=== PATIENT | female | born 1935 | race Caucasian/White ===

== ENCOUNTER 2018-08-27 12:50 | Inpatient (IN) | payer OTHER ==
[~2018-08-27] VITALS: Ht 152.4 cm; Wt 76.7 kg
[2018-08-27 12:55] VITALS: Ht 152.4 cm; Wt 76.7 kg
[2018-08-27 14:05] LABS: BASOPHIL % 0.1 % (0-2); PLATELET COUNT 257 x10^3mcL (130-400)
[2018-08-27 14:11] LABS: CALCIUM 8.9 mg/dL (8.5-10.1); CARBON DIOXIDE 29.7 mmol/L (21-32); CHLORIDE SERUM 99 mmol/L (98-107); CREATININE SERUM 1.4 mg/dL (0.6-1.0); GLUCOSE SERUM 97 mg/dL (74-106); SODIUM SERUM 135 mmol/L (136-145)
[2018-08-27 14:16] LABS: ALKALINE PHOSPHATASE 316 U/L (46-116); ALT/SGPT 25 U/L (14-59); AST/SGOT 72 U/L (15-37); BILIRUBIN TOTAL 0.95 mg/dL (0.20-1.00); TOTAL PROTEIN, SERUM 6.6 g/dL (6.4-8.2)
[2018-08-27 14:23] LABS: ALBUMIN 2.5 g/dL (3.4-5.0)
[2018-08-27] MEDS ORDERED: GOOD SENSE OMEP20 MG PO (14:51)
[2018-08-27] MEDS ORDERED: CILOSTAZOL100 M1 PO (14:51)
[2018-08-27] MEDS ORDERED: PRO30 PO (14:51)
[2018-08-27] MEDS ORDERED: TRAMADOL HCL50 MG PO (14:52)
[2018-08-27] MEDS ORDERED: CRESTOR10 M1 PO (14:53)
[2018-08-27] MEDS ORDERED: LEVO-T50 MCG PO (14:54)
[2018-08-27 15:58] VITALS: BP 126/58
[2018-08-27 16:02] VITALS: BP 129/78
[2018-08-27 20:55] VITALS: BP 109/50
[2018-08-28 05:39] VITALS: BP 136/74
[2018-08-28 07:34] LABS: CALCIUM 8.9 mg/dL (8.5-10.1); CARBON DIOXIDE 26.1 mmol/L (21-32); CHLORIDE SERUM 102 mmol/L (98-107); CREATININE SERUM 1.2 mg/dL (0.6-1.0); GLUCOSE SERUM 126 mg/dL (74-106); MAGNESIUM 1.8 mg/dL (1.8-2.4); POTASSIUM SERUM 3.8 mmol/L (3.5-5.1); SODIUM SERUM 139 mmol/L (136-145)
[2018-08-28 07:45] LABS: BASOPHIL % 0.2 % (0-2); PLATELET COUNT 214 x10^3mcL (130-400); RED CELL DISTRIBUTION WIDTH 15.2 % (11.5-14.5)
[2018-08-28 08:00] VITALS: BP 133/71
[2018-08-28 13:00] VITALS: BP 108/63
[2018-08-28 13:53] LABS: microscopic required? YES; urine erythrocyte TRACE (NEGATIVE)
[2018-08-28 17:15] VITALS: BP 116/62
[2018-08-28 20:36] VITALS: BP 114/64
[2018-08-29 05:54] VITALS: BP 104/62
[2018-08-29 08:45] VITALS: BP 123/61
[2018-08-29 12:41] VITALS: BP 118/58
[2018-08-29 17:00] VITALS: BP 128/57
[2018-08-29 21:11] VITALS: BP 129/67
[2018-08-30 05:31] VITALS: BP 126/69
[2018-08-30 06:20] LABS: CALCIUM 9.1 mg/dL (8.5-10.1); CARBON DIOXIDE 25.4 mmol/L (21-32); CHLORIDE SERUM 103 mmol/L (98-107); CREATININE SERUM 1.4 mg/dL (0.6-1.0); GLUCOSE SERUM 146 mg/dL (74-106); MAGNESIUM 1.8 mg/dL (1.8-2.4); SODIUM SERUM 140 mmol/L (136-145)
[2018-08-30 06:45] LABS: PLATELET COUNT 291 x10^3mcL (130-400)
[2018-08-30 07:17] LABS: BASOPHIL % 0 % (0-2); RED CELL DISTRIBUTION WIDTH 15.4 % (11.5-14.5)
[2018-08-30 08:28] VITALS: BP 140/78
[2018-08-30 13:31] VITALS: BP 125/76
[2018-08-30 16:00] VITALS: BP 145/74
[2018-08-30 20:18] VITALS: BP 124/62
[2018-08-31 05:50] VITALS: BP 112/73
[2018-08-31 06:18] LABS: PLATELET COUNT 228 x10^3mcL (130-400); RED CELL DISTRIBUTION WIDTH 14.2 % (11.5-14.5)
[2018-08-31 06:25] LABS: BASOPHIL % 0 % (0-2); CARBON DIOXIDE 24.7 mmol/L (21-32); CHLORIDE SERUM 107 mmol/L (98-107); CREATININE SERUM 1.3 mg/dL (0.6-1.0); GLUCOSE SERUM 135 mg/dL (74-106); MAGNESIUM 2.1 mg/dL (1.8-2.4); POTASSIUM SERUM 3.2 mmol/L (3.5-5.1); SODIUM SERUM 143 mmol/L (136-145)
[2018-08-31 09:08] VITALS: BP 143/81
[2018-08-31] MEDS ORDERED: PRE20 PO (09:29)
[2018-08-31] MEDS ORDERED: ZIT250 PO (09:29)
[2018-08-31 09:37] VITALS: BP 118/82
[2018-08-31 09:52] VITALS: BP 118/82
== END 2018-08-31 10:59 | disposition home or self-care (01) | DRG 193 ==
LOC: ED 12:50 → DU 13:52 → EDBEDREQSVC 13:53 → DU 15:18
PROVIDERS: Emergency Medicine; ADMIT Internal Medicine
DX: J18.9 Pneumonia, unspecified organism (principal); J96.01 Acute respiratory failure with hypoxia; E44.1 Mild protein-calorie malnutrition; D50.9 Iron deficiency anemia, unspecified; I10 Essential (primary) hypertension; E03.9 Hypothyroidism, unspecified; D89.9 Disorder involving the immune mechanism, unspecified; Z68.33 Body mass index [BMI] 33.0-33.9, adult; Z85.05 Personal history of malignant neoplasm of liver
CPT/HCPCS: 83880; C9113; J0132; J0696; J0713; J1644; J2543; J2920; J3370; J7030; J7620; J7626; Q0092